=== PATIENT | female | born 1990 | race American Indian/Alaskan Native ===

== ENCOUNTER 2018-05-30 06:07 | Day surgery (SDC) | payer MEDICARE ==
[2018-05-29 12:08] LABS: Basophils % (Auto) 0.6 % (0.0-1.8); Eosinophils # (Auto) 0.2 K/mm3 (0.0-0.4); Eosinophils % (Auto) 2.7 % (0.0-4.3); Hematocrit 37.7 % (30.3-42.9); Lymphocytes # (Auto) 1.5 K/mm3 (1.2-5.4); Lymphocytes % (Auto) 26.4 % (13.4-35.0); Mean Corpuscular HGB Conc 35 % (30-34); Mean Corpuscular Volume 73 fl (79-97); Monocytes # (Auto) 0.4 K/mm3 (0.0-0.8); Monocytes % (Auto) 6.5 % (0.0-7.3); Platelet Count 169 K/mm3 (140-440); Red Blood Count 5.18 M/mm3 (3.65-5.03); Red Cell Distribution Width 16.2 % (13.2-15.2)
[2018-05-29 12:14] LABS: Mean Corpuscular Hemoglobin 25 pg (28-32)
--- NOTE | 2018-05-29 12:24 | Anesthesia Consultation ---
Anesthesia Consult and Med Hx Date of service: 05/29/18 - Airway Anesthetic Teeth Evaluation: Good ROM Head & Neck: Adequate Mental/Hyoid Distance: Adequate Mallampati Class: Class II Intubation Access Assessment: Probably Good - Pulmonary Exam CTA: Yes - Cardiac Exam Cardiac Exam: RRR - Pre-Operative Health Status ASA Pre-Surgery Classification: ASA3 Proposed Anesthetic Plan: General - Pulmonary Hx Asthma: Yes (As a child) COPD: No Hx Pneumonia: Yes - Cardiovascular System Hx Hypertension: No - Central Nervous System Hx Seizures: No Hx Psychiatric Problems: Yes - Endocrine Hx Renal Disease: No Hx End Stage Renal Disease: No Hx Insulin Dependent Diabetes: Yes (gestational) Hx Hypothyroidism: No Hx Hyperthyroidism: No - Hematic Hx Anemia: No Hx Sickle Cell Disease: Yes - Other Systems Hx Alcohol Use: No Hx Cancer: No
[2018-05-29 12:25] LABS: BUN/Creatinine Ratio 14; Blood Urea Nitrogen 10 mg/dL (7-17); Calcium 9.6 mg/dL (8.4-10.2); Hemolysis Index 8
[~2018-05-30 06:07] MED LIST: NACL 0.9% IR ONE
--- NOTE | 2018-05-30 06:41 | History and Physical Report ---
History of Present Illness Date of examination: 05/29/18 Chief complaint: Dya History of present illness: Pt is a 28 year old -[place] female who presents for surgical management of dysfunctional uterine bleeding despite multiple attempts at medical management. 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, tubal ligation ) EDUCATION TEACHER History: herpes Family/Genetic History: diabetes, hypertension, cancer, sickle cell/trait Social history: no significant social history - Obstetrical History : 3 Medications and Allergies Allergies Allergy/AdvReac Type Severity Reaction Status Date / Time cephalexin monohydrate Allergy Angioedema Verified 05/25/18 13:12 [From Keflex] metronidazole [From Flagyl] AdvReac Angioedema Verified 05/25/18 13:12 Home Medications Medication Instructions Recorded Confirmed Last Taken Type Folic Acid 1 tab PO QDAY 01/20/16 05/25/18 03/02/16 08:00 History HumuLIN R 8 units SQ AC 01/20/16 05/25/18 03/01/16 18:00 History ZyrTEC 1 tab PO QDAY 01/20/16 05/25/18 03/02/16 08:00 History 1 ALPRAZolam [Xanax TAB] 0.5 mg PO TID PRN 05/25/18 05/25/18 Unknown History B3/B6/Folic/Zinc/Copper/Co-Q10 1 tab PO DAILY 05/25/18 05/25/18 Unknown History Butalb/Acetamin/Caff 50-325-40 2 tab PO Q4H PRN 05/25/18 05/25/18 Unknown History [Fioricet] Morphine Sulfate [Ms Contin ER TAB] 100 mg PO TID 05/25/18 05/25/18 Unknown History Multivitamin/Iron/Folic Acid 1 each PO DAILY 05/25/18 05/25/18 Unknown History [Centrum Women Tablet] Oxycodone HCl [Roxicodone TAB] 30 mg PO Q4H PRN 05/25/18 05/25/18 Unknown History Pregabalin [Lyrica] 75 mg PO BID 05/25/18 05/25/18 Unknown History Zinc Gluconate [Elemental Zinc] 50 mg PO DAILY 05/25/18 05/25/18 Unknown History Active Meds: Active Medications Sodium Chloride (Nacl 0.9% 1000 Ml) 1,000 mls @ 42 mls/hr IV DIRECT FLY Review of Systems All systems: negative - Vital Signs Vital signs: Vital Signs Temp Pulse Resp BP 98.9 F 88 18 118/84 05/29/18 11:30 05/29/18 11:30 05/29/18 11:30 05/29/18 11:30 Temp Pulse Resp BP Pulse Ox 98.9 F 88 18 118/84 05/29/18 11:30 05/29/18 11:30 05/29/18 11:30 05/29/18 11:30 - Physical Exam Breasts: Positive: deferred Cardiovascular: Regular rate Lungs: Positive: Clear to auscultation Abdomen: Positive: soft Extremities: Positive: normal Results Result Diagrams: 05/29/18 11:35 05/29/18 11:35 Abnormal lab results 05/29/18 05/29/18 Range/Units 11:35 11:35 RBC 5.18 H (3.65-5.03) M/mm3 MCV 73 L (79-97) fl MCH 25 L (28-32) pg MCHC 35 H (30-34) % RDW 16.2 H (13.2-15.2) % Glucose 183 H (65-100) mg/dL All other labs normal. Assessment and Plan A: Dysfunctional Uterine Bleeding Sickle Cell Anemia with narcotic dependence Diabetes Mellitus P: Proceed with dilation and curettage, hysteroscopy, Novasure endometrial ablation and other indicated procedures.
[2018-05-30] MEDS ORDERED: GARAMYCIN IV SCH (06:45)
[2018-05-30] MEDS ORDERED: GARAMYCIN/NS 120MG/100ML 120 MG/100 ML BAG IV SCH (07:00)
[2018-05-30] MEDS ORDERED: CLEOCIN 600 MG/50 mL 600 MG/50 ML BAG IV NR (07:00)
[2018-05-30] MEDS: NACL 0.9% 1000 ML 1,000 ML IV SCH ×2 (07:08→10:55)
[2018-05-30] MEDS ORDERED: XYLOCAINE MPF 2% ONE (07:10)
[2018-05-30] MEDS ORDERED: TORADOL ONE (07:10)
[2018-05-30] MEDS ORDERED: DIPRIVAN 10 MG/ML IV ONE (07:11)
[2018-05-30] MEDS ORDERED: ZOFRAN ONE (07:11)
[2018-05-30] MEDS ORDERED: SUBLIMAZE ONE (07:13)
[2018-05-30] MEDS ORDERED: SILVER NITRATE TP ONE (07:22)
[2018-05-30] MEDS ORDERED: NEURONTIN ONE (07:27)
[2018-05-30] MEDS ORDERED: TYLENOL ONE (07:28)
[2018-05-30] MEDS ORDERED: VERSED ONE (07:32)
[2018-05-30] MEDS ORDERED: NACL 0.9% 100 ML ONE (07:36)
[2018-05-30] MEDS ORDERED: DEXMEDETOMIDINE IV ONE (07:36)
[2018-05-30] MEDS ORDERED: QUELICIN ONE (07:41)
--- NOTE | 2018-05-30 07:42 | Anesthesia Day of Surgery ---
Anesthesia Day of Surgery - Day of Surgery Patient Examined: Yes Patient H&P Reviewed: Yes Patient is NPO: Yes
[2018-05-30] MEDS ORDERED: KETALAR ONE (07:43)
[2018-05-30] MEDS ORDERED: ROBINUL ONE (07:53)
[2018-05-30] MEDS ORDERED: DILAUDID IV PRN (08:58)
[2018-05-30] MEDS ORDERED: DEMEROL IV PRN (08:58)
[2018-05-30] MEDS ORDERED: ZOFRAN IV PRN (08:58)
--- NOTE | 2018-05-30 08:59 | Operative Report ---
Operative Report Operative Report: Date of procedure: May 30, 2018 Preoperative diagnosis: 1) Dysfunctional Uterine Bleeding Postoperative diagnosis: Same Procedure: 1)Diagnostic Hysteroscopy 2)Dilation and Curettage 3)NovaSure Endometrial Ablation Surgeon: Jackie Walton M.D. Findings: 1) Small anteverted mobile uterus that sounded to 10 cm 2) Proliferative endometrium on hysteroscopy Anesthesia: General with LMA Estimated blood loss: Minimal (10 mL ) IV fluid: 500 mL Specimens: endometrial curettings to pathology Drains: None Complications: None Disposition: Stable to PACU Indications for procedure: The patient is a 28 year old -[place] female who presents for surgical management of dysfunctional uterine bleeding. Operation in detail: After the risks, benefits, alternatives and complications of the procedure were explained to the patient, she gave informed consent for the procedure. She was subsequently taken to the operating room and placed in the dorsal supine position. SCDs noted to be in place and functioning. General anesthesia was then induced without difficulty. The patient was in placement dorsal lithotomy position and prepped and draped in normal sterile fashion. A timeout was performed. An exam under anesthesia was performed yielding a mobile anteverted uterus. The bladder was then catheterized and drained of urine. An open sided speculum was then placed into the vagina for adequate visualization of the cervix. The anterior lip of the cervix was then grasped with a tenaculum for traction. The cavity length was then noted to be 4.5 cm. At this time a hysteroscope was introduced to visualize the endometrial cavity which revealed proliferative endometrium. A sharp endometrial curettage was then performed and the curettings were sent to pathology. Attention was then turned to the endometrial ablation. At this time Barrera dilators were used to sequentially dilate the cervix to a # 19. Next the disposable NovaSure device was connected to the RF controller. The NovaSure disposable device was deployed to the locked position and noted to fully extend. The device was then placed in the unlocked position. The disposable device was then inserted into the uterine cavity with traction on the tenaculum. The device was then seated per protocol. After moving the device back 0.5 cm, the device was moved superiorly and inferiorly and rotated clockwise and counterclockwise to 45. The cavity width at this time was noted to be 4.0 cm. The cervical collar was then advanced to the cervix. The cavity assessment was then initiated and passed. The ablation procedure was then initiated. The cervical collar was moved away from the cervix, the device was moved to the unlocked position, and the disposable NovaSure device was removed from the uterine cavity. At this time, the single-tooth tenaculum was removed from the cervix. Silver nitrate and pressure were placed on the puncture sites to achieve hemostasis. Hemostasis was noted. All instruments were removed from the vagina atraumatically and the procedure was ended. The patient was placed into the dorsal supine position and extubated without difficulty. She was subsequently taken to the PACU in stable condition. She tolerated the procedure well. All counts were correct 2.
--- NOTE | 2018-05-30 08:59 | Anesthesia Day of Surgery ---
Anesthesia Day of Surgery - Day of Surgery Patient Examined: Yes Patient H&P Reviewed: Yes Patient is NPO: Yes
--- NOTE | 2018-05-30 08:59 | Anesthesia Consultation ---
Anesthesia Consult and Med Hx Date of service: 05/30/18 - Airway Anesthetic Teeth Evaluation: Good ROM Head & Neck: Adequate Mental/Hyoid Distance: Adequate Mallampati Class: Class II Intubation Access Assessment: Probably Good - Pulmonary Exam CTA: Yes - Cardiac Exam Cardiac Exam: RRR - Pre-Operative Health Status ASA Pre-Surgery Classification: ASA3 Proposed Anesthetic Plan: General - Pulmonary Hx Asthma: Yes (As a child) COPD: No Hx Pneumonia: Yes - Cardiovascular System Hx Hypertension: No - Central Nervous System Hx Seizures: No Hx Psychiatric Problems: Yes - Endocrine Hx Renal Disease: No Hx End Stage Renal Disease: No Hx Insulin Dependent Diabetes: Yes (gestational) Hx Hypothyroidism: No Hx Hyperthyroidism: No - Hematic Hx Anemia: No Hx Sickle Cell Disease: Yes - Other Systems Hx Alcohol Use: No Hx Cancer: No
[2018-05-30] MEDS ORDERED: LACTATED RINGERS 1,000 ML IV SCH (09:00)
--- NOTE | 2018-05-30 09:08 | Short Stay Summary ---
Short Stay Documentation Date of service: 05/30/18 - History H&P: dictated Social history: no significant social history - Allergies and Medications Current Medications: Allergies cephalexin monohydrate [From Keflex] Allergy (Verified 05/25/18 13:12) Angioedema metronidazole [From Flagyl] Adverse Reaction (Verified 05/25/18 13:12) Angioedema Home Medications Medication Instructions Recorded Confirmed Last Taken Type Folic Acid 1 tab PO QDAY 01/20/16 05/30/18 05/29/18 History HumuLIN R 8 units SQ AC 01/20/16 05/30/18 05/29/18 23:00 History 4 UNITS ZyrTEC 1 tab PO QDAY 01/20/16 05/30/18 05/29/18 23:00 History ALPRAZolam [Xanax TAB] 0.5 mg PO TID PRN 05/25/18 05/30/18 05/28/18 History B3/B6/Folic/Zinc/Copper/Co-Q10 1 tab PO DAILY 05/25/18 05/30/18 05/28/18 History Morphine Sulfate [Ms Contin ER TAB] 100 mg PO TID 05/25/18 05/30/18 05/30/18 05: 45 History Multivitamin/Iron/Folic Acid 1 each PO DAILY 05/25/18 05/30/18 05/29/18 History [Centrum Women Tablet] Oxycodone HCl [Roxicodone TAB] 30 mg PO Q4H PRN 05/25/18 05/30/18 05/30/18 05: 45 History Pregabalin [Lyrica] 75 mg PO BID 05/25/18 05/30/18 05/29/18 23:00 History Zinc Gluconate [Elemental Zinc] 50 mg PO DAILY 05/25/18 05/30/18 05/28/18 History Butalb/Acetaminophen/Caffeine 2 cap PO Q6HR PRN 05/30/18 05/30/18 05/29/18 23: 00 History [Fioricet 50-300-40 mg CAP] Insulin Degludec [Tresiba 26 unit SQ QHS 05/30/18 05/30/18 05/29/18 23:00 History Flextouch U-100] 13 UNITS Active Medications Hydromorphone HCl (Dilaudid) 0.5 mg IV Q10MIN PRN PRN Reason: Pain , Severe (7-10) Sodium Chloride (Nacl 0.9% 1000 Ml) 1,000 mls @ 42 mls/hr IV DIRECT FLY Last Admin: 05/30/18 07:08 Dose: 42 mls/hr Clindamycin HCl (Cleocin 600 Mg/50 Ml) 600 mg in 50 mls @ 100 mls/hr IV PREOP NR; Protocol Stop: 05/30/18 23:59 Gentamicin Sulfate/Sodium Chloride (Garamycin/Ns 120mg/100ml) 120 mg in 100 mls @ 200 mls/hr IV PREOP FLY Stop: 05/30/18 23:59 Lactated Ringer's (Lactated Ringers) 1,000 mls @ 100 mls/hr IV DIRECT FLY Meperidine HCl (Demerol) 25 mg IV ONCE PRN PRN Reason: Shivering Ondansetron HCl (Zofran) 4 mg IV ONCE PRN PRN Reason: Nausea And Vomiting - Physical exam Breasts: deferred - Brief post op/procedure progress note Date of procedure: 05/30/18 Pre-op diagnosis: Dysfunctional Uterine Bleeding Post-op diagnosis: same Procedure: 1)Diagnostic Hysteroscopy 2)Dilation and Curettage 3)NovaSure Endometrial Ablation Anesthesia: GETA Findings: 1) Small anteverted mobile uterus that sounded to 10 cm 2) Proliferative endometrium on hysteroscopy Surgeon: ORLANDO KUMAR Estimated blood loss: minimal Pathology: list (endometrial curettings to pathology) Specimen disposition: to lab Condition: stable - Hospital course Hospital course: The patient underwent hysteroscopy, dilation and curettage, and Novasure endometrial ablation which she tolerated well. She was observed in the PACU until she met discharge criteria. She will follow up in the office in two weeks. - Disposition Condition at discharge: Stable Disposition: DC- TO HOME OR SELFCARE - Discharge Diagnoses (1) Dysfunctional uterine bleeding Status: Acute (2) Sickle cell anemia Status: Acute (3) Diabetes Status: Acute Qualifiers: Diabetes mellitus type: type 2 Diabetes mellitus termite treater helper insulin use: unspecified correction insulin use status Diabetes mellitus complication status : with unspecified complications Qualified Code(s): E11.8 - Type 2 diabetes mellitus with unspecified complications (4) Chronic narcotic dependence Status: Acute Short Stay Discharge Plan Activity: other (Nothing in vagina and no tub baths x 4 wks ) Weight Bearing Status: Full Weight Bearing Diet: regular Follow up with: ROBINSON ROUSE MD [Primary Care Provider] - 7 Days ORLANDO KUMAR MD [Staff Physician] - 06/13/18 (please call to schedule postop appt. OK to choose another day that week if it works better for your schedule ) Prescriptions: Oxycodone HCl [Roxicodone] 30 mg PO Q6H PRN #20 tablet PRN Reason: Pain , Severe (7-10)
[2018-05-30] MEDS ORDERED: NORCO 10/325 PO PRN (09:34)
--- NOTE | 2018-05-30 12:42 | Post Anesthesia Evaluation ---
- Post Anesthesia Evaluation Patient Participated: Yes Airway Patent: Yes Stable Respiratory Function: Yes Nausea/Vomiting: No Temp > 96.8F: Yes Pain Manageable: Yes Adequeate Hydration: Yes Anesthesia Complications: No
[2018-05-30 18:54] VITALS: BP 107/65
== END 2018-05-30 12:20 | disposition home or self-care (01) ==
LOC: OR 06:07
PROVIDERS: ATTEND Obstetrics & Gynecology
DX: N85.4 Malposition of uterus (principal); F41.9 Anxiety disorder, unspecified; G43.909 Migraine, unspecified, not intractable, without status migrainosus; E11.40 Type 2 diabetes mellitus with diabetic neuropathy, unspecified; J45.909 Unspecified asthma, uncomplicated; Z98.51 Tubal ligation status; Z79.4 Long term (current) use of insulin; Z88.1 Allergy status to other antibiotic agents; Z98.891 History of uterine scar from previous surgery; Z98.890 Other specified postprocedural states
CPT/HCPCS: 36415; 58563; 80048; 82962; 84703; 85025; 88305; A4217; J0330; J1580; J1885; J2250; J2405; J2704; J3010; J7030